=== PATIENT | female | born 1995 | race Caucasian/White ===

== ENCOUNTER 2024-01-21 20:51 | Emergency (ER) | payer BC, SELFPAY ==
[2024-01-21 21:07] VITALS: BP 125/71
[2024-01-21] MEDS: ADRENALIN 0.3 MG IM (22:22)
[2024-01-21] MEDS: NSS 500 IV (22:22)
[2024-01-21] MEDS: DECADRON 20 MG IV (22:22)
[2024-01-21] MEDS: PEPCID 20 MG IV (22:23)
[2024-01-21 22:40] VITALS: BP 101/58
[2024-01-21 23:00] VITALS: BP 103/60
--- NOTE | 2024-01-21 23:12 | ED.GENMED ---
History of Present Illness
General
Chief Complaint: Allergic Reaction
Source: patient, spouse and family
Exam Limitations: none
Time Seen by Provider: 01/21/24 21:44
Nursing documentation reviewed up to this point in time: agreed with
History of Present Illness
History of Present Illness:
Patient is a 28-year-old female who states approximately 30 minutes prior to the ER her eyes began to swell with nasal congestion scratchy throat and difficulty breathing. Patient took Benadryl and Claritin and is feeling little bit better.
Patient patient feels short of breath from the nasal congestion. Patient denies chest pain. Patient denies syncope. Patient denies any vaginal bleeding. Patient is 8 and half weeks with a due date of August 26. Patient denies any
vomiting or diarrhea. Patient denies any previous history of similar episodes. Patient was eating cherries prior to that but has eaten cherries in the past without difficulty.
Past History
Past History
ED Past Medical History: Other (PCOS, R ovarian cyst)
Review of Systems
Review of Systems
All Other Systems: ROS reviewed and negative except as documented in HPI and ROS
Constitutional: Reports no symptoms
EENT: Reports sore throat and runny nose; Denies mouth swelling
Respiratory: Reports trouble breathing; Denies cough
Cardiac: Reports no symptoms
ABD/GI: Reports no symptoms
: Reports no symptoms
Musculoskeletal: Reports no symptoms
Skin: Reports itching; Denies rash
Neurological: Reports no symptoms
Hematologic/Lymphatic: Reports no symptoms
Phy Exam
Physical Exam
Physical Exam:
Physical Exam
General: mild distress, alert and appropriate, well nourished, well hydrated
HENT: Normocephalic, supple with no lymphadenopathy, no thyromegaly. Oropharynx is clear. No sublingual or lingual swelling.
Eyes: Clear sclera, conjuctiva without injection. Periorbital edema
Heart: Regular rhythm and rate. No S3, S4. No murmur.
Lungs: No respiratory distress, no stridor, lung sounds clear and equal bilaterally
Abdomen: Soft, nontender, no organomegaly, BS good
Neuro: Alert and oriented x 3, CN II - XII intact, no motor focality, no cerebellar dysfunction
Skin: no rash
Psychiatric: well kept. interactive and cooperative
Extremities: No edema, cyanosis, tenderness, Good and equal peripheral pulses.
Course
Orders/Labs/Results
Orders:
Orders
01/21/24 21:50
0.9% Sodium Chloride 500 ml [Nss] 500 ml IV BOLUS
Dexamethasone Sod Phosphate [Decadron] 20 mg IV NOW STA
EPINEPHrine PF [Adrenalin] 0.3 mg IM NOW STA
Famotidine [Pepcid] 20 mg IV NOW STA
Vital Signs
Initial and Last Documented VS:
Initial Vital Signs
Temp Pulse Resp BP Pulse Ox
98.2 F 84 20 125/71 100
01/21/24 21:07 01/21/24 21:07 01/21/24 21:07 01/21/24 21:07 01/21/24 21:07
Last Documented Vital Signs
Temp Pulse Resp BP Pulse Ox
98.2 F 78 19 103/60 99
01/21/24 21:07 01/21/24 23:00 01/21/24 23:00 01/21/24 23:00 01/21/24 23:02
*Radiology
Radiology exam reviewed: other (na)
*Pulse Oximetry
Patient hypoxic: no
*EKG
Interpreted by ED Provider?: NA
*Knitting Tester Interpretation
Rate: normal
Interpretation: normal
Heart Rate: 80
Rhythm: sinus
*Critical Care Note
Total Time (30-74mins, 75-104mins- exclusive of procedures): Not Applicable
Update Note
Update Note:
Patient feeling better. Patient will be discharged.
ED Attending Note
-
Portions of this chart may have been created with voice recognition software.� Occasional wrong word or��sound alike� substitutions may have occurred due to the inherent limitations of voice recognition software.
Discharge Plan
Departure
Patient Disposition: Home (Routine Discharge)
Date of Disposition: 01/21/24
Time of Disposition: 23:16
Patient with high blood pressure during this ER visit?: No
Condition: Good
Covid-19: Not Applicable
Discharge Problem:
Allergic reaction
Instructions: Allergic Reaction ED
Prescriptions:
New
prednisone 20 mg tablet
20 mg PO BID Qty: 10 0RF
epinephrine [EpiPen] 0.3 mg/0.3 mL Auto-Injector
0.3 mg IM .STAT PRN (Reason: anaphylaxis) Qty: 2 2RF
famotidine [Pepcid] 20 mg tablet
20 mg PO BID Qty: 10 0RF
Referrals:
Anna Yeung CRNP [Family Provider] - Follow up in 2-3 days
Interventions
Interventions:
*Risk Screen - Suicide Last Done: 01/21/24 21:07
*General Assessment Last Done: 01/21/24 21:07
*Neglect/Abuse Screening Last Done: 01/21/24 21:07
ED- Fall Risk Assessment Last Done: 01/21/24 21:07
*ED COVID-19 Vaccine History Last Done: 01/21/24 21:07
ED- Cardiac Assessment Last Done: 01/21/24 23:02
ED- Pulmonary Assessment Last Done: 01/21/24 23:02
ED-Skin Assessment Last Done: 01/21/24 23:02
Discharge Date and Time
Print Language: ARMENIAN
== END 2024-01-21 23:26 | disposition home or self-care (01) ==
LOC: EMR 20:51
PROVIDERS: EMERGENCY PHYSICIAN Emergency Medicine; FAMILY PHYSICIAN Nurse Practitioner Family
DX: T78.40XA Allergy, unspecified, initial encounter (principal); X58.XXXA Exposure to other specified factors, initial encounter
CPT/HCPCS: 99284; 96374; 96375; 96361 ×2; 96372